=== PATIENT | male | born 1965 | race Caucasian/White ===

== ENCOUNTER → 2018-07-27 | Outpatient (CLI) | payer OTHER ==
[2017-08-13 15:00] VITALS: BP 91/58
[~2018-07-27] MED LIST: ALPR0.5T6 PO; ASPI325T11 PO; ATOR20TA58 PO; CLOP75TA PO; FURO20TA3 PO; LISI-338 PO; LISI10TA2 PO; LISI2.5T PO; METO25TA4 PO; NAPR-514 PO; NAPR-695 PO; PANT40TA3 PO; REGADENOSON 0.4 MG/5 ML DISP.SYRIN. IV ONE; SIMV20TA PO
--- NOTE | 2018-07-27 14:15 | RAD ---
MR#: [id number] Date of Study: 07/27/2018 Ordering Physician: MANUEL SZYMANSKI, Referring Physician: FLORINA NELSON Tech: Rere CortezesRT (R) (N) APPROVED REPORT Test Type: Pharmacological Stress Nurse/Tech: Nilam Schmitz R.N. Test Indications: CAD Cardiac History: Hypertension, [place] in 2017 Medications: See Electronic Medical Record Medical History: See Electronic Medical Record Resting ECG: BBB, 1st degree AV block Resting Heart Rate: 71 bpm Resting Blood Pressure: 126/87mmHg Pretest Chest Pain: No chest pain Nurse/Tech Notes Murmur, lungs sound clear Consent: The procedure was explained to the patient in lay terms. Informed consent was witnessed. Abebe eout was entered into [employer] [employer]. History and Stress Test performed by Nilam Schmitz R.N. Pharm. Details Pharmacologic stress testing was performed using 0.4mg per 5ml of regadenoson given intravenously ove r 7-10 seconds. Stress Symptoms Nausea, Dyspnea, the monitor wnet blank after the injection. Pt. hooked up to the EKG machine to con tinue the monitoring. Due to this, was not able to get final printout of test. POST EXERCISE Reason for Termination: Infusion complete Max HR: 104 bpm Max Blood Pressure: 126/87mmHg Blood Pressure response to exercise: Normal blood pressure response during stress. Chest Pain: No. Arrhythmia: No. ST Change: No. INTERPRETATION Stress EKG Conclusion: The resting EKG shows a sinus rhythm, prolonged TN interval and T-wave inversi on in the inferior leads. The stress EKG shows no significant changes from baseline. No EKG evidence of stressed induced ischemia. Imaging Protocol IMAGE PROTOCOL: Rest Tc-99m/stress Tc-99m 1 day Rest: Stress: Viability: Radiopharm.Tc99m DdatlasccXr79x Sestamibi Dose10.8mCi 32.3mCi Duration 15min. 13min. Img Date 07/27/2018 07/27/2018 Inj-Img [id number]. 60min. Rest Admin Site:IV - Right AntecubitalAdministrator:TYREE Coretz Stress Admin Site: IV - Right AntecubitalAdministrator: Lili Padilla, (R)(N) STRESS DATA End Diast. Vol.187.0mlLVEDV index BSA87.0ml End Syst. Vol.82.0mlLVESV index BSA38.0ml Myocardial Bprf645.0gEject. Luuzzezb02.0% Stress Scores Regional WT1.00Summed WT24.00 Regional WM0.00Summed WM4.00 LV Perfusion The stress scans show a large inferior defect. The rest scans show a large inferior defect. Nuclear imaging shows a large inferior infarct. No evidence of significant reversible ischemia is pre sent. [employer] Left ventricular systolic function is largely intact. There is minimal inferior apical hypokinesis. E jection fraction is 56%. LV Perf. Quant 17 Seg. SSS20.00 17 Seg. SRS21.00 17 Seg. SDS0.00 Stress Defect Extent (% LAD)5.60Rest Defect Extent (% LAD)9.40Rev. Defect Extent (% LAD)0.00 Stress Defect Extent (% LCX) 27.50Rest Defect Extent (% LCX)27.50Rev. Defect Extent (% LCX)0.00 Stress Defect Extent (% RCA)82.20Rest Defect Extent (% RCA)86.70Rev. Defect Extent (% RCA)0.00 Stress Defect Extent (% ELYSSA)32.40Rest Defect Extent (% ELYSSA)36.30Rev. Defect Extent (% ELYSSA)0.20 Conclusion 1. Abnormal baseline EKG but no EKG evidence of stressed induced ischemia. 2. Nuclear imaging shows a large inferior infarct. 3. Nuclear imaging shows no significant reversible ischemia. 4. LV systolic function is largely intact with an ejection fraction of 56%. 5. Moderate to moderately low risk Lexiscan nuclear stress test significant for a large inferior infa rct but intact LV systolic function. Signed by : Manuel Szymanski MD Electronically Approved : 07/27/2018 14:13:47
== END | disposition home or self-care (01) ==
LOC: NM 08:25
PROVIDERS: ATTEND Internal Medicine Cardiovascular Disease
DX: I21.3 ST elevation (STEMI) myocardial infarction of unspecified site (principal); I25.10 Atherosclerotic heart disease of native coronary artery without angina pectoris; R94.31 Abnormal electrocardiogram [ECG] [EKG]; I11.0 Hypertensive heart disease with heart failure; I50.23 Acute on chronic systolic (congestive) heart failure
CPT/HCPCS: 78452; 93017; 96374; A9500; J2785